=== PATIENT | female | born 1975 | race American Indian/Alaskan Native ===

== ENCOUNTER 2017-04-13 06:27 | Inpatient (IN) | payer OTHER ==
--- NOTE | 2017-04-13 07:02 | ED PDOC ---
Lower Extremity Pain/Injury Time Seen by Provider: 04/13/17 06:59 Chief Complaint (Nursing): Lower Extremity Problem/Injury History Per: Patient History/Exam Limitations: no limitations Onset/Duration Of Symptoms: Gradual (approx 5 years ago with acute worsening over the past 3 days) Current Symptoms Are (Timing): Still Present Severity: Mild Additional History Per: Patient Additional Complaint(s): per pt complaining of left knee pain that is chronic from a work related injury approx 5 years ago with acute worsening over 3 days advise to f/u in the ed with Dr. tesfaye. no foot n/t/w Past Medical History Reviewed: Historical Data, Nursing Documentation, Vital Signs Vital Signs: Last Vital Signs Temp 98.1 F 04/13/17 06:44 Pulse 74 04/13/17 06:44 Resp 16 04/13/17 06:44 BP 148/99 H 04/13/17 06:44 Pulse Ox 99 04/13/17 06:44 - Medical History PMH: No Chronic Diseases - Family History Family History: States: Unknown Family Hx - Allergies Allergies/Adverse Reactions: Allergies Allergy/AdvReac Type Severity Reaction Status Date / Time No Known Allergies Allergy Verified 04/13/17 06:44 Review of Systems ROS Statement: Except As Marked, All Systems Reviewed And Found Negative Constitutional: Negative for: Fever, Chills Musculoskeletal: Positive for: Leg Pain (left knee pain) Neurological: Negative for: Weakness, Numbness Physical Exam - Reviewed Nursing Documentation Reviewed: Yes Vital Signs Reviewed: Yes - Physical Exam Appears: Positive for: Uncomfortable Head Exam: Positive for: ATRAUMATIC, NORMAL INSPECTION, NORMOCEPHALIC Extremity: Positive for: Normal ROM, Other (mild pain with full rom, foot n/v/i) . Negative for: Tenderness, Calf Tenderness, Deformity, Swelling - Laboratory Results Result Diagrams: 04/13/17 07:15 04/13/17 07:15 - ECG O2 Sat by Pulse Oximetry: 99 Disposition - Clinical Impression Clinical Impression: Knee injury - Patient ED Disposition Is Patient to be Admitted: Yes Counseled Patient/Family Regarding: Studies Performed, Diagnosis - Disposition Disposition Time: 07:57 Condition: STABLE - Pt Status Changed To: Hospital Disposition Of: Observation
[2017-04-13 07:44] LABS: BASO % 0.9 % (0.0-2.0); EOS # 0.2 K/uL (0.0-0.7); EOS % 4.5 % (0.0-4.0); HEMATOCRIT 36.3 % (34.0-47.0); LYMPH # 2.4 K/uL (1.0-4.3); LYMPH % 49.7 % (20.0-40.0); MEAN CELL VOLUME 94.3 fl (81.0-99.0); MEAN CORPUSCULAR HEMOGLOBIN 31.6 pg (27.0-31.0); MEAN CORPUSCULAR HGB CONC 33.5 g/dL (33.0-37.0); MEAN PLATELET VOLUME 9.5 fl (7.2-11.7); MONO # 0.6 K/uL (0.0-0.8); MONO % 12.2 % (0.0-10.0); NEUT # 1.6 K/uL (1.8-7.0); NEUT % 32.7 % (50.0-75.0); NRBC % 0.1 % (0.0-0.0); RED CELL DISTRIBUTION WIDTH 13.3 % (11.5-14.5); WHITE BLOOD COUNT 4.9 K/uL (4.8-10.8)
[2017-04-13 07:53] LABS: ALB/GLOB RATIO 1.3 (1.0-2.1); ALKALINE PHOSPHATASE 66 U/L (38-126); ALT/SGPT 38 U/L (9-52); AST/SGOT 25 U/L (14-36); BILIRUBIN,TOTAL 0.7 mg/dl (0.2-1.3); BLOOD UREA NITROGEN 12 mg/dl (7-17); CARBON DIOXIDE 26 mmol/L (22-30); CHLORIDE 107 mmol/L (98-107); GFR AFRICAN-AMERICAN > 60; GLUCOSE,RANDOM 96 mg/dL (65-105); POTASSIUM 3.3 MMOL/L (3.6-5.0); SODIUM 141 mmol/l (132-148); TOTAL PROTEIN 7.7 G/DL (6.3-8.2)
[2017-04-13 08:00] LABS: PARTIAL THROMBOPLASTIN TIME 30.7 Seconds (25.6-37.1)
--- NOTE | 2017-04-13 11:13 | CP.PCM.HP ---
History of Present Illness - History of Present Illness History of Present Illness: 41 yo female with no significant PMH came in because of chronic pain on the left knee since injuring it 5 yrs ago. She claimed she had 3 arthroscopies on it but didn't do any good. She was seen by Dr Liao a week ago and was advised to check in the ER today for admission for surgery. Patient denied chest pain or SOB. Able to do ADLs without difficulty. Present on Admission - Present on Admission Any Indicators Present on Admission: No History of DVT/PE: No History of Uncontrolled Diabetes: No Urinary Catheter: No Decubitus Ulcer Present: No Review of Systems - Review of Systems All systems: reviewed and no additional remarkable complaints except (aside from those mentioned above, 12 point system review were negative by me) Past Patient History - Tetanus Immunizations Tetanus Immunization: Unknown - Past Medical History & Family History Past Medical History?: Yes - Past Social History Smoking Status: Light Smoker < 10 Cigarettes Daily Alcohol: Occasional Drugs: Denies Home Situation {Lives}: With Family - CARDIAC Hx Cardiac Disorders: No - PULMONARY Hx Respiratory Disorders: No - NEUROLOGICAL Hx Neurological Disorder: No - HEENT Hx HEENT Problems: No - RENAL Hx Chronic Kidney Disease: No - ENDOCRINE/METABOLIC Hx Endocrine Disorders: No - HEMATOLOGICAL/ONCOLOGICAL Hx Blood Disorders: No - INTEGUMENTARY Hx Dermatological Problems: No - MUSCULOSKELETAL/RHEUMATOLOGICAL Hx Musculoskeletal Disorders: Yes - GASTROINTESTINAL Hx Gastrointestinal Disorders: No - GENITOURINARY/GYNECOLOGICAL Hx Genitourinary Disorders: No - PSYCHIATRIC Hx Psychophysiologic Disorder: No - SURGICAL HISTORY Hx Surgeries: Yes Hx Herniorrhaphy: Yes (Umbilical Hernia repair) Hx Orthopedic Surgery: Yes (3 arthroscopies on left knee) - ANESTHESIA Hx Anesthesia: Yes Hx Anesthesia Reactions: No Hx Malignant Hyperthermia: No Meds Allergies/Adverse Reactions: Allergies Allergy/AdvReac Type Severity Reaction Status Date / Time No Known Allergies Allergy Verified 04/13/17 06:44 Physical Exam - Constitutional Appears: No Acute Distress - Head Exam Head Exam: ATRAUMATIC - Eye Exam Eye Exam: absent: Scleral icterus - ENT Exam ENT Exam: Mucous Membranes Moist - Neck Exam Neck exam: Negative for: Meningismus - Respiratory Exam Respiratory Exam: absent: Rhonchi, Wheezes, Respiratory Distress - Cardiovascular Exam Cardiovascular Exam: REGULAR RHYTHM, +S1, +S2 - GI/Abdominal Exam GI & Abdominal Exam: Soft. absent: Tenderness - Rectal Exam Rectal Exam: Deferred - Extremities Exam Extremities exam: Positive for: joint swelling (slight swelling on left knee, with crepitation on movement) - Back Exam Back exam: NORMAL INSPECTION - Neurological Exam Neurological exam: Alert, Oriented x3 - Psychiatric Exam Psychiatric exam: Normal Affect - Skin Skin Exam: Dry, Intact Results - Vital Signs Recent Vital Signs: Last Vital Signs Temp 97.5 F L 04/13/17 10:46 Pulse 58 L 04/13/17 10:46 Resp 18 04/13/17 10:46 BP 147/87 04/13/17 10:46 Pulse Ox 100 04/13/17 10:46 - Labs Result Diagrams: 04/13/17 07:15 04/13/17 07:15 Labs: Laboratory Results - last 24 hr 04/13/17 04/13/17 07:37 08:50 Serum HCG, Qual Negative Blood Type Confirm O POSITIVE Assessment & Plan (1) Traumatic arthritis of knee Status: Acute Comment: admit to med/surg. keep NPO. start on IVF with NSS 100cc/hr. Pt is low surgical risk for the planned procedure (2) Hypokalemia Status: Acute Comment: 2 runs of KCL 10meq each. BMP in am
[2017-04-13] MEDS ORDERED: Thrombin Topical 5,000 IU Spray Kit ONE (11:20)
[2017-04-13] MEDS ORDERED: Absorbable Gelatin Sponge Size 100 ONE (11:20)
[2017-04-13 11:43] LABS: RBC URINE 17 /hpf (0-3); URINE BACTERIA OCC (<OCC); URINE BILIRUBIN NEGATIVE (NEGATIVE); URINE BLOOD MODERATE (NEGATIVE); URINE COLOR YELLOW (YELLOW); URINE GLUCOSE (UA) NEG (Normal); URINE KETONE 20 mg/dL (NEGATIVE); URINE LEUKOCYTE ESTERASE NEG Leu/uL (Negative); URINE PROTEIN 30 mg/dL (NEGATIVE); URINE UROBILINOGEN 0.2-1.0 mg/dL (0.2-1.0); WBC URINE 3 /hpf (0-5)
[2017-04-13] MEDS: Potassium CL 10 MEQ/50 ML 50 ML IVPB SCH ×2 (11:43→18:49)
[2017-04-13] MEDS: Sodium Chloride 0.9% 1,000 ML IV SCH ×2 (11:44→22:34)
[2017-04-13] MEDS ORDERED: Ropivacaine 0.5% 30ML IV ONE (12:01)
[2017-04-13] MEDS ORDERED: Succinylcholine 200 mg/10 ml Inj IV ONE (12:02)
[2017-04-13] MEDS ORDERED: Propofol 10 mg/ml Inj (20 ML) ONE ×2 (12:02→15:20)
[2017-04-13] MEDS ORDERED: Rocuronium 10 mg/ml (5 ml) ONE ×2 (12:02→14:39)
[2017-04-13] MEDS ORDERED: Lidocaine 4% (Laryng-O-Jet) Kit MM ONE (12:03)
[2017-04-13] MEDS ORDERED: Phenylephrine 10 mg/ml Inj ONE (12:05)
[2017-04-13] MEDS ORDERED: Bupivacaine HCl 0.5% PF (30 ml) Inj ONE (12:09)
[2017-04-13] MEDS ORDERED: Dexamethasone 4 mg/1 ml ONE ×2 (12:09→15:14)
[2017-04-13] MEDS ORDERED: Ketamine 50 mg/ml Inj (10 ml) ONE (13:29)
[2017-04-13] MEDS ORDERED: Lactated Ringer's 1,000 ML IV ONE ×2 (13:30→15:01)
[2017-04-13] MEDS ORDERED: Neostigmine Methylsulfate 3mg/3ml Syringe IV ONE (15:11)
[2017-04-13] MEDS ORDERED: Neostigmine Methylsulfate 2 MG/2 ML ML IV ONE (15:11)
[2017-04-13] MEDS ORDERED: Sevoflurane - Inhalation Anesthetic Liq (250 ml) ONE (15:28)
[2017-04-13] MEDS ORDERED: Metoprolol 1 mg/ml Inj IVP ONE (15:38)
[2017-04-13] MEDS ORDERED: Bacitracin Ointment 30 GM TUBE ONE (16:27)
[2017-04-13] MEDS ORDERED: Bacitracin OINT 15GM TOP ONE (16:30)
--- NOTE | 2017-04-13 17:02 | PCM.ANESB3 ---
Femoral Nerve Block - Femoral Nerve Block Date of Procedure: 04/13/17 Anesthesiologist: left knee OA Pre-Procedure Diagnosis: same Procedure Performed: Femoral Nerve Block Left - Procedure Femoral Nerve Block: The procedure was explained to the patient that it is for the post-operative pain management. Consent was obtained after a thorough discussion with the patient regarding the benefits and possible complications of local anesthetic block of the femoral nerve at the inguinal crease area. The patient was brought to the operating room and standard monitors were applied. Time-out was held with the circulating nurse to confirm the correct surgery and the appropriate block. Under general anesthesia, patient was placed in supine position with fully extended lower extremities and the ___left groin exposed. The femoral artery was then carefully palpated. The ultrasound transducer was then applied to this area in the transverse plane and the femoral nerve was visualized lateral to the femoral artery and underneath the fascia iliaca. After thorough identification, the inguinal crease area was prepped with Betadine solution three times and 1 % Lidocaine was injected subcutaneously for topical anesthesia. At this point, a #22 gauge Stimuplex 2-inch needle was inserted immediately lateral to the femoral artery pulse at the inguinal crease and advanced perpendicularly. The needle was inserted to the ultrasound transducer in-plane towards the femoral nerve in a [id number] direction. Needle advancement was performed carefully under direct ultrasound visualization. Nerve stimulator was used and twitch of the quadriceps muscle was obtained at current of ___0.5__ MA. After negative aspiration, __2___cc of ___0.5__% ropivicaine ____was injected and this was followed with __13____ cc of 0.5__ % ropivicaine . Under ultrasound guidance the local anesthetics were observed spreading below fascia iliaca and around the femoral nerve. The needle was removed intact and sterile dressing was applied. The patient had stable vital signs, was conscious and in no apparent distress. The patient tolerated the femoral nerve block well with stable vital signs and was prepared for subsequent surgery.
--- NOTE | 2017-04-13 17:03 | PCM.ANESB2 ---
Popliteal Nerve Block - Popliteal Nerve Block Date of Procedure: 04/13/17 Anesthesiologist: chas Pre-Procedure Diagnosis: left knee OA Post-Procedure Diagnosis: same Procedure Performed: Popliteal Nerve Block Left - Procedure Popliteal Nerve Block: This procedure was explained to the patient that it is for post-operative pain management. Consent was obtained after a thorough discussion with the patient regarding the benefits and possible complications of local anesthetic block of the sciatic nerve at the popliteal level. The patient was brought to the operating room and standard monitors are applied. Time-out was held with the circulating nurse to confirm the correct surgery and the appropriate block. Under general anesthesia, patient's operative leg was gently raised and supported and the groove in between the biceps femoris and vastus lateralis muscles was carefully palpated. The skin approximately 8cm above the popliteal crease was then marked. The ultrasound transducer was then applied to the posterior thigh approximately 8cm above the popliteal crease in the transverse plane and the sciatic nerve before its division was visualized lateral to the popliteal artery and in between the bicep femoris and semimembranosus/ semitendinosus muscles. After identification, the lateral portion of the thigh was prepped with Betadine solution three times and Lidocaine 1% was injected subcutaneously for topical anesthesia. At this point, a # 21 gauge Stimuplex insulated 4 inch needle was inserted into pre-marked area and advanced in a perpendicular direction. The needle was inserted above the ultrasound transducer in-plane towards the sciatic nerve in a [id number] direction. Needle advancement was performed carefully under direct ultrasound visualization. Nerve stimulator was used and dorsiflexion of the ___left__ foot was elicited at a current of __0.5___ MA. After repeated negative aspiration, ___2__cc of ___0.5__ % bupivicaine was injected and this was flowed with ___13___ cc of ___0.5___% bupivicaine____ ___. Under ultrasound guidance the local anesthetics were observed tenting the epidural sheath and surrounding the roots of the sciatic nerve. The needle was removed intact and sterile dressing was applied. The patient tolerated the popliteal nerve block well with stable vital signs and was subsequently prepared for the surgery.
[2017-04-13] MEDS: HYDROmorphone 0.5 mg/0.5 ml ISec IVP PRN ×2 (17:35→17:50)
--- NOTE | 2017-04-13 18:33 | PCM.OP ---
Operative Report - Operative Report Date of Surgery/Procedure: 04/13/17 Time of Surgery/Procedure: 14:30 (time in room/anesthesia indcution time 1325) Surgeon: Keshawn Shirt Bander: 1st assist GUY Montesinos/ 2nd assist Ab Finch Anesthesia/Sedation: Gernal/regional- DR Arredondo Pre-Operative Diagnosis: post traumatic arthritis L Knee with severe valgus deformity Post-Operative Diagnosis: Tricompartmental Osteoarthritis with deformity (valgus ) Left Knee. anterior and posterior synovitis. posterior capsular contracture. lateral patella retinacular contracture Indication for Surgery: 41 yo female with severe and persistent L knee pain and restricted L knee ROM. Pt presents to ER at [facility] this AM with severe pain andrestricted ROM L knee withg marked deformity Pt admitted, evaluated. Because of the SEVERE structrural deformity, the concept of TKR is discussed at length. Variious other options, including arthroscoipy were discussed. Pt can no longer stand the discomfort, and presents for TKR Pros, cons risks and benefits were discussed at length. Operative Findings: severe tricompartmental O/A L knee. tricompartmental synovitis. posterior capsular contracture. lateral patella contracture Procedure/Operation Description: L TKR LEFT. anterior and posterior synovectomy LEFT. posterior capsular release LEFT. lateral patella release LEFT KNEE. computer navigation Left Knee. Operative indication: Ping Bauer is a 41-year-old woman with severe tricompartmental osteoarthritis and severe valgus deformity between 9 and 11. The patient presented this a.m. to [facility] with pain and restricted range of motion deformity left lower extremity. The patient cannot ambulate without a positive effusion. The patient was admitted and was evaluated by myself and the hospitalist. Pros cause risks and benefits of total knee replacement arthroplasty were discussed the concept of alternative procedures the fact that the patient had failed arthroscopy and failed conservative management and evaluating the severe plan the patient presented in total knee replacement was offered as an option. The patient admitted same. She could no longer stand the discomfort and the abnormal gait was painful and bothersome from a cosmetic point of view. After having obtained informed consent in the above fashion, thoroughly discussing the pros cause risks and benefits of total knee replacement arthroplasty at 41 years of age possibility of mechanical failure infection thromboembolic disease secondary or tertiary surgery was discussed. Patient wished the knee replacement arthroplasty to be accomplished. After obtaining informed consent after we identified side and site and procedure and the critical pause/time out was accomplished/, after the satisfactory induction of regional and general anesthesia the patient identified as Ping Yip having been placed in the supine position with all bony prominences well-padded the left lower extremity is exsanguinated using a 6 inch Esmarch bandage. The tourniquet which had been applied was inflated to 350 mmHg. A 14 cm straight midline approach is made to the knee. Medial arthrotomy was accomplished. A portion of the patellar ligament was elevated. Dissection was carried around posteromedially to the direct head of the semimembranosus tendon. Anterior and posterior cruciate ligaments were excised; medial and lateral meniscectomies were accomplished. The tibia was dislocated anteriorly. Computer navigation commences at this point. The tibia was dislocated anteriorly and the initial osteotomy of the arthroplasty was accomplished on the tibial side. The accelorometer and sensor were placed on the anterior strut. Computer navigation, via Elancemeter technology commences. varus/valgus is set to 0 degrees with 3 degrees posterior slope after registration is acocmplished of the medial and lateral malleoli, and the depth is set to 10mmbelow the more prominent condyle. The pt has severe deformity fo the lateral compartment. aftyer navigation is accomplishe, tibial osteotomy is accomplished. The proximal tibia is prepared with guides to roation the lateral aspect of the tibial condyle, midmalleolsar axis and medial third of the tibial tuberosity. The proximal tibia is reamed and punced. Attention is turned to the femur. Ath this point, anterior and posterior synovectomy had been accomplished. This eliminates inflammatory tissue, and offersd exposure for the comuter navigation on the femoral side./. The guide pin is placed just above the intercondylar notch. The distal cutting block is set 1 fingerbreadth above the anterior aspect of the femur. the accelerometer and the sensor are placed. The distal cut is set to 1 degree varus, secondary to the pts severe valgus deformity. The hip center is found and registered and the femoral cut is fled apprx .5degreees, with varus valgus set at 1 degree varus., Cutting bloock is set to depth of 9 mm. Distal osteotomy is accomplished. anterior posterior sizing is to number 3 femoral component. 4-in-1 block is affixed along the epicondylar axis. anterior and posterior osteotomies are accomplished; with chamfer cuts as well. Lamina spreaderis placed and tensing is accomplished; posterior capsule is release; lateral patella retinaculum is divided. Lateral patella reticaulum is released. Intercondylar b ox cut is accomplished. Trialing is accomplished with # 4 tibial tray;#3 femoral component; and 15 mm poly. Flexion extension gap is found to be excellent. balance is found to be excellent. Attention is turned to the patella. Free hand patella osteotomy is accomplished, after measuremnt of patella girth. Reaming is accomplished for 38 mm patella Trialing is accomplished with tibial, femoral and patella componeents in place Fleion extension and patella balance is mfound to be excellent. [place] is used to prepare the tibial, patella and femoral bone. The #3 femoral component , #4 tibial tral and 38 mm patella are cemented. # 15 mm tibial poly is inserted. The construct is found to be stable. Closayre is inlayers over 1/8 hemovac drain. Closure in layers with fiberwire, vicryl; 0 quill. 2-0 vicryl and stpales for skin Aleksander Levine compression dressing is applied. Knee immobilizer is applied It should be noted that fleion to at least 125 and extension to 0 is attained prior to closure. End dicatation Dr Liao. . Estimated Blood Loss: 125cc Blood Replaced: 0 Sponge/Instrument Count: correct Drains: 1 hemovac Complications: none Specimen: bone/cartilage/synovium Discharge & Condition: stable discharge condition to PACU
[2017-04-13] MEDS: Oxycodone/Acetaminophen 5/325 mg Tab PO PRN (22:26)
[2017-04-14] MEDS ORDERED: Oxycodone/Acetaminophen 5/325 mg Tab PO STA (01:46)
[2017-04-14] MEDS: Oxycodone/Acetaminophen 5/325 mg Tab PO PRN ×5 (05:27→20:44)
[2017-04-14 07:13] LABS: BLOOD UREA NITROGEN 10 mg/dl (7-17); CALCIUM 8.7 mg/dL (8.4-10.2); CARBON DIOXIDE 21 mmol/L (22-30); CHLORIDE 107 mmol/L (98-107); GFR AFRICAN-AMERICAN > 60; GLUCOSE,RANDOM 137 mg/dL (65-105); SODIUM 136 mmol/l (132-148)
[2017-04-14 07:14] LABS: BASO % 0.2 % (0.0-2.0); HEMATOCRIT 31.4 % (34.0-47.0); LYMPH # 1.3 K/uL (1.0-4.3); LYMPH % 16.6 % (20.0-40.0); MEAN CELL VOLUME 95.1 fl (81.0-99.0); MEAN CORPUSCULAR HEMOGLOBIN 31.6 pg (27.0-31.0); MEAN CORPUSCULAR HGB CONC 33.2 g/dL (33.0-37.0); MEAN PLATELET VOLUME 9.7 fl (7.2-11.7); MONO # 0.8 K/uL (0.0-0.8); MONO % 10.4 % (0.0-10.0); NEUT # 5.7 K/uL (1.8-7.0); NEUT % 72.8 % (50.0-75.0); RED CELL DISTRIBUTION WIDTH 13.5 % (11.5-14.5); WHITE BLOOD COUNT 7.8 K/uL (4.8-10.8)
--- NOTE | 2017-04-14 11:10 | CP.PCM.CON ---
History of Present Illness - History of Present Illness History of Present Illness: THE PATIENT IS A 41 YEAR OLD FEMALE WHO HAD TRAUMA OF THE LEFT KNEE 5 YEARS AGO AND SHE HAD THREE ARTHROSCOPIES AND SHE HAD MUCH PAIN RECENTLY AND WENT TO THE ER YESTERDAY AND WAS ADMITTED TO THE HOSPITAL AND UNDERWENT A LEFT TKR YESTERDAY. IN THE ER SHE WAS FOUND TO HAVE HYPOKALEMIA AND WAS GIVEN IV KCL. I WAS ASKED BY DR VALLEJO TO SEE AND FOLLOW THE PATIENT. SHE DENIES ANY OTHER SIGNIFICANT PAST MEDICAL HISTORY. Past Patient History - Tetanus Immunizations Tetanus Immunization: Unknown - Past Medical History & Family History Past Medical History?: Yes - Past Social History Smoking Status: Light Smoker < 10 Cigarettes Daily Alcohol: Occasional Drugs: Denies Home Situation {Lives}: With Family - CARDIAC Hx Cardiac Disorders: No - PULMONARY Hx Respiratory Disorders: No - NEUROLOGICAL Hx Neurological Disorder: No - HEENT Hx HEENT Problems: No - RENAL Hx Chronic Kidney Disease: No - ENDOCRINE/METABOLIC Hx Endocrine Disorders: No - HEMATOLOGICAL/ONCOLOGICAL Hx Blood Disorders: No - INTEGUMENTARY Hx Dermatological Problems: No - MUSCULOSKELETAL/RHEUMATOLOGICAL Hx Musculoskeletal Disorders: Yes - GASTROINTESTINAL Hx Gastrointestinal Disorders: No - GENITOURINARY/GYNECOLOGICAL Hx Genitourinary Disorders: No - PSYCHIATRIC Hx Psychophysiologic Disorder: No - SURGICAL HISTORY Hx Surgeries: Yes Hx Herniorrhaphy: Yes (Umbilical Hernia repair) Hx Orthopedic Surgery: Yes (3 arthroscopies on left knee) - ANESTHESIA Hx Anesthesia: Yes Hx Anesthesia Reactions: No Hx Malignant Hyperthermia: No Meds Allergies/Adverse Reactions: Allergies Allergy/AdvReac Type Severity Reaction Status Date / Time No Known Allergies Allergy Verified 04/13/17 06:44 - Medications Medications: Current Medications Sodium Chloride (Sodium Chloride 0.9%) 1,000 mls @ 100 mls/hr IV .Q10H [facility] Last Admin: 04/13/17 22:34 Dose: 100 mls/hr Oxycodone/Acetaminophen (Percocet 5/325 Mg Tab) 1 tab PO Q4 PRN PRN Reason: Pain, moderate (4-7) Stop: 04/16/17 18:41 Last Admin: 04/14/17 09:04 Dose: 1 tab Physical Exam - Respiratory Exam Respiratory Exam: Clear to Auscultation Bilateral - Cardiovascular Exam Cardiovascular Exam: REGULAR RHYTHM, +S1, +S2 - Additional Findings Additional findings: EKG SINUS BRADYCARDIA, R 57 K+ 3.3 IN ER REPEAT K+ AFTER IV KCL WAS 4.0 Results - Vital Signs Recent Vital Signs: Last Vital Signs Temp 97.8 F 04/14/17 07:58 Pulse 63 04/14/17 07:58 Resp 18 04/14/17 07:58 BP 111/71 04/14/17 09:51 Pulse Ox 99 04/14/17 07:58 - Labs Result Diagrams: 04/14/17 06:20 04/14/17 06:20 Labs: Laboratory Results - last 24 hr 04/13/17 04/14/17 04/14/17 11:20 06:20 06:20 WBC 7.8 D RBC 3.30 L Hgb 10.4 L Hct 31.4 L MCV 95.1 MCH 31.6 H MCHC 33.2 RDW 13.5 Plt Count 141 MPV 9.7 Neut % (Auto) 72.8 Lymph % (Auto) 16.6 L Gage % (Auto) 10.4 H Eos % (Auto) 0.0 Baso % (Auto) 0.2 Neut # 5.7 Lymph # 1.3 Gage # 0.8 Eos # 0.0 Baso # 0.0 Sodium 136 Potassium 4.0 Chloride 107 Carbon Dioxide 21 L Anion Gap 12 BUN 10 Creatinine 0.7 Est GFR ( Amer) > 60 Est GFR (Non-Af Amer) > 60 Random Glucose 137 H Calcium 8.7 Urine Color Yellow Urine Clarity Cloudy Urine pH 6.0 Ur Specific [place] 1.024 Urine Protein 30 Urine Glucose (UA) Neg Urine Ketones 20 Urine Blood Moderate Urine Nitrate Positive H Urine Bilirubin Negative Urine Urobilinogen 0.2-1.0 Ur Leukocyte Esterase Neg Urine RBC (Auto) 17 H Urine Microscopic WBC 3 Ur Squamous Epith Cells 3 Urine Bacteria Occ H Assessment & Plan - Assessment and Plan (Free Text) Assessment: S/P LEFT TKR HYPOKALEMIA-TREATED SINUS BRADYCARDIA ON EKG Plan: CONTINUE IV FLUIDS AND PAIN MEDICATIONS FOR REHAB
--- NOTE | 2017-04-14 12:03 | RAD ---
PROCEDURE: Left Knee Radiographs. HISTORY: Pain.Relevant surgical history: Status post left TKA. COMPARISON: None. FINDINGS: BONES: Satisfactory position and alignment of orthopedic hardware distal femur and proximal tibia. JOINTS: Expected postoperative changes identified. Surgical drain noted JOINT EFFUSION: Expected postoperative changes OTHER FINDINGS: None. IMPRESSION: Satisfactory postoperative status.
--- NOTE | 2017-04-14 14:04 | CP.PCM.PN ---
Subjective - Date & Time of Evaluation Date of Evaluation: 04/14/17 Time of Evaluation: 14:00 - Subjective Subjective: Patient was seen bedside. She was noticed to be lying in bed in NAD ,talking on the phone with no distress. As soon as physician approached patient asking about her condition she started loudly and angrily stating that she is in severe pain 10/10 and that she has been only on percoset 5 mg for her pain when she was on Oxycodone 30 mg po Q12 at home. She states that the numbness from hip to below the knee area has resolved but still is numb from below the knee to her foot Explained to the patient that we will address her concerns and her pain appropriately and that ornamental painter that just saw her is making a few changes.Patient still stating that she will not use the CPM machine or participate with PT and that nobody can force her to . Explained once more that her pain will be addressed appropriately. Explained to patient that physical therapy, early on ppost op and CPM machine use is crucial for her recovery and good knee ROM in the future . BP stable , afebrile Objective - Vital Signs/Intake and Output Vital Signs (last 24 hours): Temp Pulse Resp BP Pulse Ox 97.8 F 63 18 111/71 99 04/14/17 07:58 04/14/17 07:58 04/14/17 07:58 04/14/17 09:51 04/14/17 07:58 - Medications Medications: Current Medications Hydromorphone HCl (Dilaudid) 1 mg IVP Q4 PRN PRN Reason: Pain, severe (8-10) Sodium Chloride (Sodium Chloride 0.9%) 1,000 mls @ 100 mls/hr IV .Q10H [facility]ADA Last Admin: 04/13/17 22:34 Dose: 100 mls/hr Oxycodone/Acetaminophen (Percocet 5/325 Mg Tab) 1 tab PO Q4 PRN PRN Reason: Pain, moderate (4-7) Stop: 04/16/17 18:41 Last Admin: 04/14/17 12:59 Dose: 1 tab Oxycodone/Acetaminophen (Percocet 5/325 Mg Tab) 2 tab PO Q4 PRN PRN Reason: Pain, moderate (4-7) Stop: 04/17/17 13:54 - Labs Labs: 04/14/17 06:20 04/14/17 06:20 PT 11.6 Seconds (9.8-13.1) 04/13/17 07:15 INR 1.0 (0.9-1.2) 04/13/17 07:15 APTT 30.7 Seconds (25.6-37.1) 04/13/17 07:15 - Constitutional Appears: Agitated - Head Exam Head Exam: ATRAUMATIC, NORMOCEPHALIC - Eye Exam Eye Exam: EOMI, PERRL Pupil Exam: NORMAL ACCOMODATION - ENT Exam ENT Exam: Mucous Membranes Moist, Normal Exam - Neck Exam Neck Exam: Normal Inspection - Respiratory Exam Respiratory Exam: NORMAL BREATHING PATTERN. absent: Accessory Muscle Use, Prolonged Expiratory Phase - GI/Abdominal Exam GI & Abdominal Exam: Soft, Normal Bowel Sounds. absent: Distended, Rebound - Rectal Exam Rectal Exam: Deferred - Extremities Exam Additional comments: left knee dressing in place - Neurological Exam Neurological Exam: Alert, Awake, Oriented x3 - Psychiatric Exam Psychiatric exam: Agitated Assessment and Plan - Assessment and Plan (Free Text) Assessment: 41 yo female with no significant PMH came in because of chronic pain on the left knee since injuring it 5 yrs ago. She claimed she had 3 arthroscopies on it but didn't do any good. She was seen in [place] yesterday and ortho was consulted . Patient taken to OR and underwent left TKR Post op complaining of severe knee pain uncontrolled with current pain management 1. Traumatic arthritis of knee s/p TKR , left post op day 1 pain uncontrolled on current pain regiment ornamental painter consulted. Started on Percoset PRN and dilaudid PRN participated with PT but refusing CPM machine use Received Ancef prophylactically continue incentive spirometry ortho on consult following Continue PT 2. Acute blood loss anemia Hgb dropped from 12 -10 Continue monitoring 3.Hypokalemia replaced 4. DVT prophylaxis Lovenox started
[2017-04-14] MEDS ORDERED: HYDROmorphone 0.5 mg/0.5 ml ISec ONE (14:14)
[2017-04-14] MEDS: HYDROmorphone 0.5 mg/0.5 ml ISec IVP PRN ×3 (14:24→22:55)
[2017-04-14] MEDS ORDERED: Oxycodone/Acetaminophen 5/325 mg Tab PO PRN (15:45)
[2017-04-14] MEDS: Enoxaparin 40 mg Syringe SC SCH (16:51)
[2017-04-15] MEDS: HYDROmorphone 0.5 mg/0.5 ml ISec IVP PRN ×2 (04:44→09:31)
[2017-04-15] MEDS: Oxycodone/Acetaminophen 5/325 mg Tab PO PRN ×2 (07:08→13:19)
[2017-04-15 07:34] LABS: BLOOD UREA NITROGEN 7 mg/dl (7-17); CALCIUM 8.7 mg/dL (8.4-10.2); CARBON DIOXIDE 27 mmol/L (22-30); CHLORIDE 103 mmol/L (98-107); GFR AFRICAN-AMERICAN > 60; GLUCOSE,RANDOM 115 mg/dL (65-105); HEMATOCRIT 30.2 % (34.0-47.0); MEAN CELL VOLUME 95.2 fl (81.0-99.0); MEAN CORPUSCULAR HEMOGLOBIN 31.9 pg (27.0-31.0); MEAN CORPUSCULAR HGB CONC 33.5 g/dL (33.0-37.0); POTASSIUM 3.4 MMOL/L (3.6-5.0); RED CELL DISTRIBUTION WIDTH 13.5 % (11.5-14.5); SODIUM 136 mmol/l (132-148); WHITE BLOOD COUNT 7.6 K/uL (4.8-10.8)
[2017-04-15 07:38] VITALS: BP 157/92; PULSE 99; RESP 18; TEMP 98.1; O2SAT 99
[2017-04-15] MEDS: Enoxaparin 40 mg Syringe SC SCH (09:10)
--- NOTE | 2017-04-15 10:55 | CP.PCM.DIS ---
Provider - Provider Date of Admission: 04/14/17 14:41 Attending physician: Waldo Liao III, MD Primary care physician: None Consults: Ortho Cardiology pain management Time Spent in preparation of Discharge (in minutes): 15 Hospital Course - Lab Results Lab Results: Most Recent Lab Values WBC 7.6 K/uL (4.8-10.8) 04/15/17 07:05 RBC 3.17 Mil/uL (3.80-5.20) L 04/15/17 07:05 Hgb 10.1 g/dL (12.0-16.0) L 04/15/17 07:05 Hct 30.2 % (34.0-47.0) L 04/15/17 07:05 MCV 95.2 fl (81.0-99.0) 04/15/17 07:05 MCH 31.9 pg (27.0-31.0) H 04/15/17 07:05 MCHC 33.5 g/dL (33.0-37.0) 04/15/17 07:05 RDW 13.5 % (11.5-14.5) 04/15/17 07:05 Plt Count 130 K/uL (130-400) 04/15/17 07:05 MPV 9.7 fl (7.2-11.7) 04/14/17 06:20 Neut % (Auto) 72.8 % (50.0-75.0) 04/14/17 06:20 Lymph % (Auto) 16.6 % (20.0-40.0) L 04/14/17 06:20 [place]ady % (Auto) 10.4 % (0.0-10.0) H 04/14/17 06:20 Eos % (Auto) 0.0 % (0.0-4.0) 04/14/17 06:20 Baso % (Auto) 0.2 % (0.0-2.0) 04/14/17 06:20 Neut # 5.7 K/uL (1.8-7.0) 04/14/17 06:20 Lymph # 1.3 K/uL (1.0-4.3) 04/14/17 06:20 [place]ady # 0.8 K/uL (0.0-0.8) 04/14/17 06:20 Eos # 0.0 K/uL (0.0-0.7) 04/14/17 06:20 Baso # 0.0 K/uL (0.0-0.2) 04/14/17 06:20 PT 11.6 Seconds (9.8-13.1) 04/13/17 07:15 INR 1.0 (0.9-1.2) 04/13/17 07:15 APTT 30.7 Seconds (25.6-37.1) 04/13/17 07:15 Sodium 136 mmol/l (132-148) 04/15/17 07:05 Potassium 3.4 MMOL/L (3.6-5.0) L 04/15/17 07:05 Chloride 103 mmol/L (98-107) 04/15/17 07:05 Carbon Dioxide 27 mmol/L (22-30) 04/15/17 07:05 Anion Gap 9 (10-20) L 04/15/17 07:05 BUN 7 mg/dl (7-17) 04/15/17 07:05 Creatinine 0.6 mg/dL (0.7-1.2) L 04/15/17 07:05 Est GFR ( Amer) > 60 04/15/17 07:05 Est GFR (Non-Af Amer) > 60 04/15/17 07:05 Random Glucose 115 mg/dL (65-105) H 04/15/17 07:05 Calcium 8.7 mg/dL (8.4-10.2) 04/15/17 07:05 Total Bilirubin 0.7 mg/dl (0.2-1.3) 04/13/17 07:15 AST 25 U/L (14-36) 04/13/17 07:15 ALT 38 U/L (9-52) 04/13/17 07:15 Alkaline Phosphatase 66 U/L (38-126) 04/13/17 07:15 Total Protein 7.7 G/DL (6.3-8.2) 04/13/17 07:15 Albumin 4.3 g/dL (3.5-5.0) 04/13/17 07:15 Globulin 3.4 gm/dL (2.2-3.9) 04/13/17 07:15 Albumin/Globulin Ratio 1.3 (1.0-2.1) 04/13/17 07:15 Serum HCG, Qual Negative (NEGATIVE) 04/13/17 07:37 Urine Color Yellow (YELLOW) 04/13/17 11:20 Urine Clarity Cloudy (Clear) 04/13/17 11:20 Urine pH 6.0 (5.0-8.0) 04/13/17 11:20 Ur Specific [place] 1.024 (1.003-1.030) 04/13/17 11:20 Urine Protein 30 mg/dL (NEGATIVE) 04/13/17 11:20 Urine Glucose (UA) Neg mg/dL (Normal) 04/13/17 11:20 Urine Ketones 20 mg/dL (NEGATIVE) 04/13/17 11:20 Urine Blood Moderate (NEGATIVE) 04/13/17 11:20 Urine Nitrate Positive (NEGATIVE) H 04/13/17 11:20 Urine Bilirubin Negative (NEGATIVE) 04/13/17 11:20 Urine Urobilinogen 0.2-1.0 mg/dL (0.2-1.0) 04/13/17 11:20 Ur Leukocyte Esterase Neg [place]/uL (Negative) 04/13/17 11:20 Urine RBC (Auto) 17 /hpf (0-3) H 04/13/17 11:20 Urine Microscopic WBC 3 /hpf (0-5) 04/13/17 11:20 Ur Squamous Epith Cells 3 /hpf (0-5) 04/13/17 11:20 Urine Bacteria Occ (<OCC) H 04/13/17 11:20 Blood Type O POSITIVE 04/13/17 07:15 Blood Type Confirm O POSITIVE 04/13/17 08:50 Antibody Screen Negative 04/13/17 07:15 BBK History Checked No verified bt 04/13/17 07:15 - Hospital Course Hospital Course: 41 yo female with no significant PMH came in because of chronic pain on the left knee since injuring it 5 yrs ago. She claimed she had 3 arthroscopies on it but didn't do any good. She was seen in [place] yesterday and ortho was consulted . Patient taken to OR and underwent left TKR Post op complaining of severe knee pain uncontrolled with current pain management . Pain specialist consulted and made appropriate adjustments . Today feeling beter.Hemodfynamically stable, afebrile. Pain is better controlled Will d/c to [facility] for physical therapy 1.Traumatic arthritis of knee s/p TKR , left post op day 2 pain better controlled on current pain regiment pain management was consulted participated with PT but refusing CPM machine use Received Ancef prophylactically continue incentive spirometry Continue pain management ortho on consult following Continue PT Will d/c to [facility] for PT Follow up with Dr. Liao in 1 week 2. Acute blood loss anemia Hgb dropped from 12 -10 Continue monitoring 3.Hypokalemia replaced 4. DVT prophylaxis Lovenox started Discharge Exam - Head Exam Head Exam: ATRAUMATIC, NORMOCEPHALIC - Eye Exam Eye Exam: EOMI, Normal appearance, PERRL Pupil Exam: NORMAL ACCOMODATION - ENT Exam ENT Exam: Normal Exam - Neck Exam Neck exam: Full Rom, Normal Inspection - Respiratory Exam Respiratory Exam: absent: Accessory Muscle Use, Prolonged Expiratory Phase, Respiratory Distress - Cardiovascular Exam Cardiovascular Exam: REGULAR RHYTHM. absent: JVD - GI/Abdominal Exam GI & Abdominal Exam: Normal Bowel Sounds, Soft. absent: Distended, Guarding, Rebound - Rectal Exam Rectal Exam: Deferred - Extremities Exam Extremities exam: normal inspection, pedal pulses present Additional comments: right knee dressing in place - Back Exam Back exam: NORMAL INSPECTION - Neurological Exam Neurological exam: Alert, CN II-XII Intact, Oriented x3, Reflexes Normal - Psychiatric Exam Psychiatric exam: Normal Affect - Skin Skin Exam: Dry, Intact, Normal Color, Warm Discharge Plan - Follow Up Plan Condition: STABLE Disposition: REHAB FACILITY/REHAB UNIT Patient education suggested?: Yes Instructions: Knee Replacement (DC) Referrals: Waldo Liao III, MD [Staff Provider] -
--- NOTE | 2017-04-15 13:06 | CP.PCM.PN ---
Subjective - Date & Time of Evaluation Date of Evaluation: 04/15/17 Time of Evaluation: 09:45 - Subjective Subjective: NO COMPLAINTS EXCEPT FOR LEFT KNEE SURGICAL SITE PAIN Objective - Vital Signs/Intake and Output Vital Signs (last 24 hours): Temp Pulse Resp BP Pulse Ox 98.1 F 99 H 18 157/92 H 99 04/15/17 07:38 04/15/17 07:38 04/15/17 07:38 04/15/17 07:38 04/15/17 07:38 - Medications Medications: Current Medications Docusate Sodium (Colace) 100 mg PO BID [facility] Last Admin: 04/15/17 09:10 Dose: 100 mg Enoxaparin Sodium (Lovenox) 40 mg SC DAILY [facility] PRN Reason: Protocol Last Admin: 04/15/17 09:10 Dose: 40 mg Hydromorphone HCl (Dilaudid) 1 mg IVP Q4 PRN PRN Reason: Pain, severe (8-10) Last Admin: 04/15/17 09:31 Dose: 1 mg Sodium Chloride (Sodium Chloride 0.9%) 1,000 mls @ 100 mls/hr IV .Q10H [facility] Last Admin: 04/13/17 22:34 Dose: 100 mls/hr Oxycodone/Acetaminophen (Percocet 5/325 Mg Tab) 2 tab PO Q4 PRN PRN Reason: Pain, moderate (4-7) Stop: 04/17/17 13:54 Last Admin: 04/15/17 07:08 Dose: 2 tab Oxycodone/Acetaminophen (Percocet 5/325 Mg Tab) 1 tab PO Q4 PRN PRN Reason: Pain, Mild (1-3) Stop: 04/17/17 15:46 - Labs Labs: 04/15/17 07:05 04/15/17 07:05 PT 11.6 Seconds (9.8-13.1) 04/13/17 07:15 INR 1.0 (0.9-1.2) 04/13/17 07:15 APTT 30.7 Seconds (25.6-37.1) 04/13/17 07:15 - Respiratory Exam Respiratory Exam: Clear to Ausculation Bilateral - Cardiovascular Exam Cardiovascular Exam: REGULAR RHYTHM Assessment and Plan - Assessment and Plan (Free Text) Assessment: S/P LEFT TKR HYPOKALEMIA-CORRECTED Plan: FOR DISCHARGE TO SUBACUTE UNIT TODAY
--- NOTE | 2017-04-15 18:32 | CARD ---
APPROVED REPORT EKG Measurement Heart [id number] <Conclusion> Sinus bradycardia Possible Left atrial enlargement Borderline ECG
== END 2017-04-15 14:44 | DRG 470 ==
LOC: H.ER 06:27 → UNDOADMOB 07:33 → H.ERHOLD 07:33 → H.MEDSURG1 10:36 → H.ERHOLD 10:36 → OBSVTOIN 04-14 14:41
PROVIDERS: ADMIT Orthopaedic Surgery; ATTEND Orthopaedic Surgery
PROC: 3E0T3BZ Introduction of Anesthetic Agent into Peripheral Nerves and Plexi, Percutaneous Approach (ICD-10-PCS; 2017-04-13)
PROC: 3E0T3BZ Introduction of Anesthetic Agent into Peripheral Nerves and Plexi, Percutaneous Approach (ICD-10-PCS; 2017-04-13)
PROC: 8E0YXBZ Computer Assisted Procedure of Lower Extremity (ICD-10-PCS; 2017-04-13)
PROC: 0SRD0J9 Replacement of Left Knee Joint with Synthetic Substitute, Cemented, Open Approach (ICD-10-PCS; principal; 2017-04-13 16:00)
PROC: 0SBD0ZZ Excision of Left Knee Joint, Open Approach (ICD-10-PCS; 2017-04-13 16:00)
PROC: 0SND0ZZ Release Left Knee Joint, Open Approach (ICD-10-PCS; 2017-04-13 16:00)
DX: M12.562 Traumatic arthropathy, left knee (principal); D62 Acute posthemorrhagic anemia; R00.1 Bradycardia, unspecified; E87.6 Hypokalemia; T14.90 Injury, unspecified; X58.XXXS Exposure to other specified factors, sequela; M65.9 Synovitis and tenosynovitis, unspecified; F17.210 Nicotine dependence, cigarettes, uncomplicated; M21.062 Valgus deformity, not elsewhere classified, left knee; M24.562 Contracture, left knee